=== PATIENT | female | born 1950 | race Caucasian/White ===

== ENCOUNTER 2019-10-11 11:46 | Emergency (ER) | payer MEDICARE ==
[~2019-10-11] VITALS: Ht 152.4 cm; Wt 72.6 kg
[~2019-10-11 11:46] MED LIST: CEFPODOXIME PR200 M1 PO; CIPRO250 M1 PO; CIPROFLOXACIN500 M3 PO; CLONIDINE0.1 PO; FERROUS SULFAT325 M1 PO; HYDRALAZINE 5050 M1 PO; IBUPROFEN 800800 M1 PO; LISINOPRIL-HCT1 EAC1 PO; PAXIL 20 MG TAB20 MG PO; PAXIL40 MG PO; PROTONIX40 M2 PO; ZOCOR 20 MG TAB20 M1 PO; ZOFRAN4 MG PO; [UNRECOGNIZED DRUG - CODE] PO; [UNRECOGNIZED DRUG - REMARK]; [UNRECOGNIZED DRUG - REMARK]
[2019-10-11] MEDS ORDERED: LISINOPRIL2.5 MG PO (11:54)
[2019-10-11] MEDS ORDERED: HYDRALAZINE 2525 M1 PO (11:54)
[2019-10-11] MEDS ORDERED: METFORMIN HCL500 M3 PO (11:54)
[2019-10-11] MEDS ORDERED: CALCIUM500 MG PO (11:55)
[2019-10-11] MEDS ORDERED: CLONIDINE HCL0.2 M2 PO (11:55)
[2019-10-11] MEDS ORDERED: PROZAC 10 MG CA10 MG PO (11:55)
[2019-10-11] MEDS ORDERED: SIMVASTATIN80 MG PO (11:55)
[2019-10-11] MEDS ORDERED: FERRACTIV IRON1 EACH PO (11:55)
[2019-10-11 12:06] LABS: ABSOLUTE LYMPHOCYTES 2.5 thou/uL (0.8-5.3); ABSOLUTE MONOCYTES 0.5 thou/uL (0.0-1.2); ABSOLUTE NEUTROPHILS 3.7 thou/uL (1.6-8.1); BASOPHILS 0.5 %; EOSINOPHILS 0.2 %; HEMATOCRIT 39.5 % (37.0-47.0); HEMOGLOBIN 13.4 gm/dL (12.0-15.0); LYMPHOCYTES 37.2 %; MCHC 33.9 g/dL (28.0-37.0); MCV 91.6 fL (80.0-100.0); MONOCYTES 7.8 %; MPV 9.2 fl. (7.2-11.1); NUCLEATED RBCS 0 /100WBC; PLATELET COUNT* 262 thou/uL (150-400); POLYS 54.3 %; RBC 4.31 mil/uL (4.20-5.00); WBC 6.8 thou/uL (4.0-11.0)
[2019-10-11 12:30] LABS: CREATININE 1.7 mg/dL (0.6-1.3); POTASSIUM 3.7 mmol/L (3.5-5.1)
[2019-10-11 12:35] LABS: ALBUMIN 3.8 g/dL (3.4-5.0); TOTAL BILIRUBIN 0.3 mg/dL (<0.1-1.0); TOTAL PROTEIN 7.9 g/dL (6.4-8.2)
[2019-10-11 12:45] LABS: INFLUENZA A ANTIGEN Positive (Negative); INFLUENZA B ANTIGEN Negative (Negative)
[2019-10-11 15:16] LABS: URINE BILIRUBIN NEGATIVE (Negative); URINE BLOOD NEGATIVE (Negative); URINE CLARITY CLEAR; URINE COLOR YELLOW; URINE GLUCOSE-RANDOM NEGATIVE (Negative); URINE KETONES NEGATIVE (Negative); URINE LEUKOCYTES-REFLEX 1+ (Negative); URINE NITRITE-REFLEX POSITIVE (Negative); URINE PROTEIN NEGATIVE (Negative); URINE SPECIFIC GRAVITY 1.015 (1.005-1.030); URINE UROBILINOGEN 0.2 E.U./dl (0.2-1.0)
[2019-10-11 15:23] LABS: SQUAMOUS 4-10 Moderate /LPF (0-3)
[2019-10-11 15:24] LABS: BACTERIA-REFLEX >30 Many /HPF (None Seen); URINE RBC 0-2 Rare /HPF (0-2)
[2019-10-11 15:25] LABS: CRYSTALS None Seen /LPF (None Seen); HYALINE CASTS 4-10 Moderate /LPF (None Seen); MUCUS None Seen strn/LPF (None Seen)
[2019-10-11 15:34] VITALS: BP 138/58
--- NOTE | 2019-10-12 15:05 | EKG ---
[place] [address] ELECTROCARDIOGRAM REPORT Name: YANCY WEST Room: [facility]#: [id number] Admission: 10/11/19 Attend Phys: Discharge: 10/11/19 Date of : 52 Date of Service: 10/11/19 1152 Report #: [id number] THIS REPORT FOR: //name// [facility] ED Test Date: 2019-10-11 Test Time: 11:52:30 Pat Name: YANCY WEST Department: Room: Gender: Polisher And Sander: [place] : 1950 Requested By: Jennifer Oropeza Order Number: [id number] MD: Keven Castellanos Measurements Intervals [place] Rate: 75 P: 63 TX: 182 QRS: -18 QRSD: 102 T: 38 QT: 400 QTc: 447 Interpretive Statements Sinus rhythm Borderline left axis deviation Compared to ECG 03/04/2013 17:34:54 Left bundle-branch block no longer present Electronically Signed On 10-12-2019 15:04:41 HAY SORTER by Keven Castellanos [email or web address] <ELECTRONICALLY SIGNED> By: Shannon Castellanos MD, [facility] 10/12/19 1504 1152 1152 Shannon Castellanos MD, [facility] /EPI
== END 2019-10-11 15:35 | disposition home or self-care (01) ==
LOC: M.ERS 11:46
PROVIDERS: Personal Emergency Response Attendant
DX: J10.1 Influenza due to other identified influenza virus with other respiratory manifestations (principal); R55 Syncope and collapse; E78.00 Pure hypercholesterolemia, unspecified; I10 Essential (primary) hypertension; Z90.49 Acquired absence of other specified parts of digestive tract; Z98.890 Other specified postprocedural states; Z87.891 Personal history of nicotine dependence

== ENCOUNTER 2020-11-29 05:30 | Inpatient (IN) | payer MEDICARE ==
[2020-11-29] VITALS (7 sets, daily range): BP systolic 136–214; BP diastolic 70–88
[~2020-11-29] VITALS: Ht 152.4 cm; Wt 77.8 kg
--- NOTE | ~2020-11-29 | CON ---
[address] [address] CONSULTATION Name: YANCY WEST ELSA Room: [address] IN M.R.#: [id number] Admission: 11/29/20 Attend Phys: Joo Parham Discharge: Date of : 52 Report #: [id number] THIS REPORT FOR: cc: Olive Figueredo MD, Jayne Lora MD Khosla,Jeff Silva MD ~ DATE OF SERVICE: 11/29/2020 HISTORY OF PRESENT ILLNESS: This is a 70-year-old female patient who was evaluated by me for multiple symptoms. The patient is having pain behind the right eye. She says she has been checked for glaucoma and in last April, she had a full ophthalmology examination and there was no evidence of glaucoma. She is having some nausea, vomiting, and diarrhea. I saw her this morning and then saw again this evening. She said the symptoms have improved. She does not have any prior history of migraine. REVIEW OF SYSTEMS: Negative for this kind of headache. She says she has a history of high blood pressure, high cholesterol. She had herniated disk in the past. She does have temporal pain, but her sed rate is only 6. A 14-point review of system was otherwise noncontributory. She is not complaining of any loss of vision, chest pain, respiratory difficulty, musculoskeletal, constitutional, dermatological, hematological, psychiatric, throat, allergic symptom associated with present symptomatology. PAST MEDICAL HISTORY: Negative for headache. FAMILY HISTORY: Negative for early age stroke. SOCIAL HISTORY: She drinks occasionally. PHYSICAL EXAMINATION: NEUROLOGIC: She is alert, responsive, able to follow simple and complex command. Her speech, concentration, fund of knowledge and memory is at her baseline. She does not have any meningeal sign. She moves all 4 extremities. NECK: There is no carotid bruit. There is no meningeal sign in this patient. CARDIORESPIRATORY: Appear unremarkable. VITAL SIGNS: Blood pressure is 188/80, pulse is 70, temperature is 97.8. IMAGING: I reviewed the patient's MRIs and they are unremarkable. IMPRESSION: This patient probably has a viral syndrome. I cannot rule out glaucoma. They did not check the pressure in the Emergency Room. I think we should see if we can do it. Temporal arteritis looks unlikely. I discussed with the patient. I told her if her symptom continues, [place] [address] CONSULTATION Name: YANCY WEST Room: [address] IN [facility]#: [id number] Admission: 11/29/20 Attend Phys: Joo Parham Discharge: Date of : 52 Report #: [id number] spinal tap because there are some next step to do. She wants to hold on, but she says if she is not better, then she will do it tomorrow. I spent more than 50 minutes of time on my both visits taking care of this patient today and majority was spent counseling and coordinating. Thank you very much for this referral. By: 1810 2030Jeff Sauer MD /nt
[~2020-11-29 05:30] MED LIST changes: +CALCIUM500 MG PO; +CLONIDINE HCL0.2 M2 PO; +FERRACTIV IRON1 EACH PO; +HYDRALAZINE 2525 M1 PO; +LISINOPRIL2.5 MG PO; +METFORMIN HCL500 M3 PO; +PROZAC 10 MG CA10 MG PO; +SIMVASTATIN80 MG PO
[2020-11-29 06:04] LABS: ABSOLUTE LYMPHOCYTES 1.2 thou/uL (0.8-5.3); ABSOLUTE MONOCYTES 0.3 thou/uL (0.0-1.2); ABSOLUTE NEUTROPHILS 4.6 thou/uL (1.6-8.1); BASOPHILS 0.7 %; EOSINOPHILS 0.6 %; HEMOGLOBIN 11.7 gm/dL (12.0-15.0); LYMPHOCYTES 18.9 %; MCH 30.3 pg (26.0-34.0); MCHC 33.3 g/dL (28.0-37.0); MONOCYTES 5.1 %; MPV 8.3 fl. (7.2-11.1); NUCLEATED RBCS 0 /100WBC; PLATELET COUNT* 191 thou/uL (150-400); POLYS 74.7 %; RBC 3.85 mil/uL (4.20-5.00); RDW-CV 14.1 % (10.5-14.5); WBC 6.1 thou/uL (4.0-11.0)
[2020-11-29 06:15] LABS: CALCIUM 8.7 mg/dL (8.5-10.1); CREATININE 0.9 mg/dL (0.6-1.3); POTASSIUM 3.5 mmol/L (3.5-5.1)
[2020-11-29 06:19] LABS: APTT 26.2 Seconds (25.0-31.3); INR 1.1; PROTIME 11.7 Seconds (9.20-11.50)
[2020-11-29 06:20] LABS: ALBUMIN 3.7 g/dL (3.4-5.0); TOTAL BILIRUBIN 0.4 mg/dL (<0.1-1.0)
--- NOTE | 2020-11-29 17:06 | EKG ---
[place] [address] ELECTROCARDIOGRAM REPORT Name: YANCY WEST Room: [address] ADM IN M.R.#: [id number] Admission: 11/29/20 Attend Phys: Joby Simon Discharge: Date of : 52 Date of Service: 11/29/20906 Report #: [id number] THIS REPORT FOR: //name// [facility] ED Test Date: 2020-11-29 Test Time: 09:07:41 Pat Name: YANCY WEST Department: Room: [facility] Gender: F Director Of Trauma: JENNIFER : 1950 Requested By: Laith Gardner Order Number: [id number] MD: Mohan Torres Measurements Intervals [place] Rate: 76 P: 56 MA: 186 QRS: -15 QRSD: 101 T: 23 QT: 443 QTc: 499 Interpretive Statements Sinus rhythm Possible left atrial enlargement Abnormal R-wave progression, late transition Compared to ECG 10/11/2019 11:52:30 Significant changes not noted Electronically Signed On 11-29-2020 17:05:55 CDT by Mohan Torres [email or web address] <ELECTRONICALLY SIGNED> By: Mohan Torres MD, FACC 11/29/20 1705 6 6 Mohan Torres MD, FAC /EPI
[2020-11-30 03:49] VITALS: BP 153/72
[2020-11-30 04:49] LABS: ABSOLUTE LYMPHOCYTES 1.7 thou/uL (0.8-5.3); ABSOLUTE MONOCYTES 0.4 thou/uL (0.0-1.2); ABSOLUTE NEUTROPHILS 3.4 thou/uL (1.6-8.1); BASOPHILS 0.6 %; EOSINOPHILS 0.8 %; HEMATOCRIT 30.1 % (37.0-47.0); HEMOGLOBIN 10.1 gm/dL (12.0-15.0); LYMPHOCYTES 30.6 %; MCH 30.4 pg (26.0-34.0); MCHC 33.6 g/dL (28.0-37.0); MCV 90.6 fL (80.0-100.0); MONOCYTES 7.7 %; MPV 8.8 fl. (7.2-11.1); NUCLEATED RBCS 0 /100WBC; PLATELET COUNT* 184 thou/uL (150-400); POLYS 60.3 %; RBC 3.33 mil/uL (4.20-5.00); RDW-CV 13.9 % (10.5-14.5); WBC 5.7 thou/uL (4.0-11.0)
[2020-11-30 04:52] LABS: ALBUMIN 3.1 g/dL (3.4-5.0); ALKALINE PHOSPHATASE 47 U/L (46-116); ANION GAP 8 mmol/L (7-16); BUN 13 mg/dL (7-18); CHLORIDE 107 mmol/L (98-107); CHOLESTEROL 76 mg/dL (<200); CO2 27 mmol/L (21-32); GLUCOSE 87 mg/dL (70-99); HDL CHOLESTEROL 35 mg/dL (>40); LDL CHOLESTEROL 19 mg/dL (<100); POTASSIUM 3.4 mmol/L (3.5-5.1); SGOT 15 U/L (15-37); SGPT 13 U/L (30-65); SODIUM 142 mmol/L (136-145); TC:HDL 2.2 Ratio (Not establshd); TOTAL BILIRUBIN 0.3 mg/dL (<0.1-1.0); TOTAL PROTEIN 6.2 g/dL (6.4-8.2); TRIGLYCERIDE 112 mg/dL (<150); VLDL 22 mg/dL (<40)
[2020-11-30 04:53] LABS: SERUM ASSESSMENT Clear
[2020-11-30 07:47] VITALS: BP 181/75
[2020-11-30 12:39] VITALS: BP 144/67
--- NOTE | 2020-11-30 13:40 | 2DMMODE ---
[place] [address] 2 D/M-MODE ECHOCARDIOGRAM Name: YANCY WEST Room: [address] IN [facility]#: [id number] Admission: 11/29/20 Attend Phys: Joby Simon Discharge: Date of : 52 Date of Service: 11/30/20 1340 Report #: [id number] THIS REPORT FOR: cc: Olive Figueredo MD, Jayne Lora MD [place], Michael J. MD [facility] ~ APPROVED REPORT Study performed: 11/30/2020 09:57:37 EXAM: Comprehensive 2D, Doppler, and color-flow Echocardiogram Patient Location: In-Patient Room #: 224 Status: routine BSA: 1.74 HR: 83 bpm BP: 181/75 mmHg Rhythm: NSR Other Information Study Quality: Good Indications CVA/TIA Echo Enhancing Agent Indication: Rule out Shunt Agent(s) / Amount(s) Used: Agitated Saline 10 cc 2D Dimensions IVSd: 13.89 (7-11mm) LVOT Diam: 19.00 (18-24mm) LVDd: 41.52 mm PWd: 9.12 (7-11mm) Ascending Ao: 32.58 (22-36mm) LVDs: 22.96 (25-40mm) Aortic Root: 33.53 mm Volumes Left Atrial Volume (Systole) LA ESV Index: 33.90 mL/m2 Aortic Valve AoV Peak Tacos.: 2.04 m/s AO Peak Gr.: 16.66 mmHg LVOT Max P.46 mmHg AO Mean Gr.: 8.24 mmHg LVOT Mean P.52 [place] [address] 2 D/M-MODE ECHOCARDIOGRAM Name: YANCY WEST Room: [address] IN M.R.#: [id number] Admission: 11/29/20 Attend Phys: Joby Siomn Discharge: Date of : 52 Date of Service: 11/30/20 1340 Report #: [id number] LVOT Max V: 1.45 m/s AO V2 VTI: 37.93 cm LVOT Mean V: 0.85 m/s ESTEFANÍA (VTI): 2.18 cm2 LVOT V1 VTI: 29.10 cm AI Falls: 2.59 m/s2 AI PHT: 463.94 ms Mitral Valve E/A Ratio: 0.98 MV Decel. Time: 190.62 ms MV E Max Tacos.: 0.73 m/s MV PHT: 55.28 ms MVA (PHT): 3.98 cm2 TDI E/Lateral E': 8.11 E/Medial E': 7.30 Medial E' Tacos.: 0.10 m/s Lateral E' Tacos.: 0.09 m/s Pulmonary Valve PV Peak Tacos.: 1.31 m/s PV Peak Gr.: 6.84 mmHg Tricuspid Valve RAP Estimate: 5.00 mmHg TR Peak Gr.: 34.71 mmHg RVSP: 39.00 mmHg PA Pressure: 39.00 mmHg Left Ventricle The left ventricle is normal size. There is normal LV segmental wall motion. Mild concentric left ventricular hypertrophy. Left ventricular systolic function is normal. LVEF is 60-65%. Transmitral Doppler flow pattern suggests impaired LV relaxation. Right Ventricle The right ventricle is normal size. The right ventricular systolic function is normal. Atria Left atrium is mildly dilated. The interatrial septum is intact with no evidence for an atrial septal defect. Right atrium is mildly dilated. Aortic Valve Mild aortic valve sclerosis. Mild aortic regurgitation. There is no aortic valvular stenosis[place] [address] 2 D/M-MODE ECHOCARDIOGRAM Name: YANCY WEST Room: [address] IN .R.#: [id number] Admission: 11/29/20 Attend Phys: Joby Simon Discharge: Date of : 52 Date of Service: 11/30/20 1340 Report #: [id number] The mitral valve is normal in structure. Trace mitral regurgitation. No evidence of mitral valve stenosis. Tricuspid Valve The tricuspid valve is normal in structure. Mild tricuspid regurgitation. Mild pulmonary hypertension. The RVSP is 45-50 mmHg. Pulmonic Valve The pulmonary valve is normal in structure. There is no pulmonic valvular regurgitation. Great Vessels The aortic root is normal in size. IVC is normal in size and collapses >50% with inspiration. Pericardium There is no pericardial effusion. <Conclusion> The left ventricle is normal size. Mild concentric left ventricular hypertrophy. Left ventricular systolic function is normal. LVEF is 60-65%. Transmitral Doppler flow pattern suggests impaired LV relaxation. There is normal LV segmental wall motion. Left atrium is mildly dilated. Right atrium is mildly dilated. Mild aortic valve sclerosis. Mild aortic regurgitation. Trace mitral regurgitation. Mild tricuspid regurgitation. Mild pulmonary hypertension. The RVSP is 45-50 mmHg. IVC is normal in size and collapses >50% with inspiration. The interatrial septum is intact with no evidence for an atrial septal defect. <ELECTRONICALLY SIGNED> By: Mohan Torres MD, FACC 11/30/20 1340 1340 1340 Mohan Torres MD, FACC /INF
[2020-11-30 15:31] VITALS: BP 155/68
[2020-11-30 20:00] VITALS: BP 175/76
[2020-11-30 22:06] LABS: GLYCOHEMOGLOBIN (HGB A1C) 5.1 % (4.8-5.6)
[2020-12-01 00:32] VITALS: BP 175/69
[2020-12-01 04:31] LABS: HEMATOCRIT 30.9 % (37.0-47.0); HEMOGLOBIN 10.2 gm/dL (12.0-15.0); MCH 30.2 pg (26.0-34.0); MCHC 33.2 g/dL (28.0-37.0); MCV 91.1 fL (80.0-100.0); MPV 8.6 fl. (7.2-11.1); RBC 3.39 mil/uL (4.20-5.00); RDW-CV 14.2 % (10.5-14.5); WBC 4.8 thou/uL (4.0-11.0)
[2020-12-01 04:41] LABS: ALBUMIN 3.1 g/dL (3.4-5.0); CALCIUM 8.3 mg/dL (8.5-10.1); POTASSIUM 4.1 mmol/L (3.5-5.1); TOTAL BILIRUBIN 0.2 mg/dL (<0.1-1.0); TOTAL PROTEIN 6.1 g/dL (6.4-8.2)
[2020-12-01 05:02] VITALS: BP 147/75
[2020-12-01 07:59] VITALS: BP 202/71
[2020-12-01] MEDS ORDERED: BAYER CHEWABLE81 MG PO (09:21)
[2020-12-01] MEDS ORDERED: ZOFRAN ODT4 MG PO (09:21)
[2020-12-01] MEDS ORDERED: MILK OF MA2400 MG/11 PO (09:21)
[2020-12-01] MEDS ORDERED: COLACE 100 MG100 MG PO (09:21)
[2020-12-01] MEDS ORDERED: ACETAMINOPHEN325 M1 PO (09:21)
[2020-12-01] MEDS ORDERED: LIPITOR 40 MG T40 M1 PO (09:22)
[2020-12-01 11:15] VITALS: BP 202/71
[2020-12-01] MEDS ORDERED: LISINOPRIL5 MG PO (11:21)
[2020-12-01 12:16] VITALS: BP 202/71
== END 2020-12-01 12:15 | disposition home or self-care (01) | DRG 71 ==
LOC: M.ERS 05:30 → M.2W 08:13 → M.TBA-ER 08:13 → M.2W 09:18
PROVIDERS: Personal Emergency Response Attendant; ADMIT Internal Medicine; ATTEND Internal Medicine
DX: G93.89 Other specified disorders of brain (principal); E44.1 Mild protein-calorie malnutrition; I10 Essential (primary) hypertension; E78.00 Pure hypercholesterolemia, unspecified; E11.9 Type 2 diabetes mellitus without complications; Z20.822 Contact with and (suspected) exposure to COVID-19; Z90.49 Acquired absence of other specified parts of digestive tract; Z98.891 History of uterine scar from previous surgery; Z79.899 Other long term (current) drug therapy; Z68.33 Body mass index [BMI] 33.0-33.9, adult